=== PATIENT | female | born 1955 | race Caucasian/White ===

== ENCOUNTER → 2016-07-20 | Emergency (ER) | payer OTHER ==
[~2016-07-20] MED LIST: MECLIZINE HCL 25 MG TABLET (FP) ONE; MECLIZINE HCL 25 MG TABLET (FP) PO ONE
[2016-07-20 16:05] VITALS: BP 130/82; PULSE 88; TEMP 98.1; BMI 19.8
--- NOTE | 2016-07-20 18:19 | PDOC ---
[id number] Timing/Duration: other (this am) Associated Symptoms: denies: chest pain, fever/chills, headaches, nausea/ vomiting, shortness of breath, weakness <Fanta KanJemal - Last Filed: 07/27/16 20:32> <Gallo Boland - Last Filed: 07/30/16 09:59> - General Chief Complaint: Lightheaded Stated Complaint: LIGHTHEADED, NECK PAIN Time Seen by Provider: 07/20/16 17:57 Past History - Past Medical History Cardiac Disorders: Yes ("valve problem") Thyroid Disease: No Other medical history: herniated disc - Immunization History Immunization Up to Date: Yes - Psycho/Social/Smoking Cessation Hx Anxiety: No Suicidal Ideation: No Smoking History: Never smoked Have you smoked in the past 12 months: No Hx Alcohol Use: No Drug/Substance Use Hx: No Substance Use Type: None <EmiratiFantaIreneDaniela Last Filed: 07/27/16 20:32> <Gallo Boland - Last Filed: 07/30/16 09:59> - Past Medical History Allergies/Adverse Reactions: Allergies Allergy/AdvReac Type Severity Reaction Status Date / Time No Known Allergies Allergy Verified 07/20/16 16:00 Home Medications: Ambulatory Orders Meclizine HCl 25 mg PO BID PRN #14 tab.chew 07/20/16 Review of Systems - Review of Systems Constitutional: No: Chills, Fever HEENTM: No: Blurred Vision Respiratory: No: Shortness of Breath Cardiac (ROS): No: Chest Pain Neurological: Yes: Dizziness. No: Headache, Numbness, Tingling, Weakness <EmiratiFanta-Daniela Last Filed: 07/27/16 20:32> *Physical Exam - Vital Signs Last Vital Signs Temp Pulse Resp BP Pulse Ox 98.1 F 88 17 130/82 98 07/20/16 16:01 07/20/16 16:01 07/20/16 16:01 07/20/16 16:01 07/20/16 16:01 - Physical Exam General Appearance: Yes: Appropriately Dressed. No: Apparent Distress HEENT: positive: Normal Voice Neck: positive: Supple. negative: Tender, Decreased range of motion Respiratory/Chest: positive: Lungs Clear, Normal Breath Sounds. negative: Respiratory Distress Cardiovascular: positive: Regular Rate, S1, S2 Gastrointestinal/Abdominal: positive: Soft. negative: Tender Extremity: positive: Normal Inspection Integumentary: positive: Dry, Warm Neurologic: positive: Fully Oriented, Alert, Normal Mood/Affect, Motor Strength 5/5. negative: Facial Droop (no nystagmus, Prince intact, no drift, no ataxia) <EmiratiFantaArianna - Last Filed: 07/27/16 20:32> - Vital Signs Last Vital Signs Temp Pulse Resp BP Pulse Ox 98.1 F 88 17 130/82 98 07/20/16 16:01 07/20/16 16:01 07/20/16 16:01 07/20/16 16:01 07/20/16 16:01 <Gallo Boland - Last Filed: 07/30/16 09:59> ED Treatment Course - LABORATORY CBC & Chemistry Diagram: 07/20/16 18:25 07/20/16 18:25 - RADIOLOGY Radiology Studies Ordered: Category Date Time Status CHEST X-RAY PORTABLE* [RAD] Stat Radiology 07/20/16 17:57 Ordered <EmiratiDavid - Last Filed: 07/27/16 20:32> - LABORATORY CBC & Chemistry Diagram: 07/20/16 18:25 07/20/16 18:25 - ADDITIONAL ORDERS Additional order review: 07/20/16 18:25 RBC 4.84 MCV 89.7 MCHC 32.8 RDW 13.5 MPV 10.3 Neutrophils % 65.0 Lymphocytes % 27.2 Monocytes % 6.6 Eosinophils % 0.5 Basophils % 0.7 - Medications Given in the ED: ED Medications Discontinued Medications Generic Name Dose Route Start Last Admin Trade Name Angelq PRN Reason Stop Dose Admin Meclizine HCl 25 mg 07/20/16 18:38 07/20/16 19:37 Antivert - PO 07/20/16 18:39 Not Given ONCE ONE <Gallo Boland - Last Filed: 07/30/16 09:59> Medical Decision Making - Medical Decision Making 07/20/16 18:11 60-year-old female who reports history of possible valvular heart disease "on EKG" per patient, disc herniation to cspine, does not take any daily medications , here with dizziness. Patient reports waking up with sensation of the room spinning this a.m, brought on mostly upon standing. Has persisted throughout the day. No headache, visual changes, nausea, vomiting, focal weakness, chest pain or shortness of breath. No history of similar episode in the past. No recent URI symptoms and no tinnitus. Patient also complaining of persistent posterior neck pain status post injury 2 months ago per patient when she fell in her dining room injuring right side of neck. States she also had epistaxis at the time. Did not go to the ED. States pain has continued. No upper extremity sensory changes, or weakness. Called her PMD, Dr. Burrell, today who referred patient to the ED for workup of vertigo See exam Vertigo Non-focal w/ no cerebellar findings in ED No uri sxs No chest pain/sob -labs/ekg/CT head/?MRI -meclizine/reassess Persistent neck pain s/p fall 2 months ago Does have h/o disc herniation to cspine No upper ext sensory changes/weakness No sig ttp on exam, FROMI Given current compliant of vertigo, did ponder upon possible carotid dissection though unlikely given timing of injury -pain control as needed in ED -will discuss further w/u w/ ED attg 07/20/16 18:20 07/20/16 18:36 Labs and CTH/CTA neck pending as d/w ED attg 07/20/16 18:37 07/20/16 18:44 <David Kan - Last Filed: 07/27/16 20:32> - Medical Decision Making 07/30/16 09:58 The patient was seen and evaluated in conjunction with ALBIN Kan under my direct supervision, ancillary studies were reviewed. I independently interviewed and evaluated the patient and I agree with the plan as outlined by ALBIN Kan . <Gallo Boland - Last Filed: 07/30/16 09:59> *DC/Admit/Observation/Transfer <David Kan - Last Filed: 07/27/16 20:32> <Gallo Boland - Last Filed: 07/30/16 09:59> Diagnosis at time of Disposition: Vertigo - Discharge Dispostion Disposition: HOME - Prescriptions Prescriptions: Meclizine HCl 25 mg PO BID PRN #14 tab.chew PRN Reason: Vertigo - Referrals Referrals: García Rangel MD [Staff Physician] - Carlos A Burrell MD [Primary Care Provider] - - Patient Instructions Printed Discharge Instructions: DI for Vertigo Additional Instructions: Return to the emergency department immediately with ANY new, persistent or worsening symptoms including persistent dizziness, blurry vision or double vision, changes in your speech pattern, any numbness, tingling, weakness, severe neck pain or other concerns. Ibuprofen or Tylenol as needed for your neck discomfort, use a heating pad. If there is any change in nature of your pain or worsens please return for further evaluation. You MUST call and follow up with Dr. Burrell on Sunday or sunday for further evaluation of your symptoms. Results were discussed with you. Please make sure your doctor reviews the results of your emergency evaluation. Print Language: HONDURAN
[2016-07-20 18:56] LABS: BASOPHIL 0.7 % (0-2.0); EOSINOPHIL 0.5 % (0-4.5); MCH 29.4 pg (25.7-33.7); MCHC 32.8 g/dl (32.0-36.0); MEAN CELL VOLUME 89.7 fl (80-96); MEAN PLT VOLUME 10.3 fl (7.5-11.1); PLATELET COUNT 144 K/MM3 (134-434); RDW 13.5 % (11.6-15.6)
[2016-07-20 19:12] LABS: ANION GAP 12 (8-16); BILIRUBIN,TOTAL 0.5 mg/dL (0.2-1.0); CALCIUM 9.5 mg/dL (8.5-10.1); CO2 27 mmol/L (21-32); COCKROFT - GAULT 114.1635; CREATININE 0.5 mg/dL (0.55-1.02); GLUCOSE,RANDOM 92 mg/dL (74-106); SGOT/AST 22 U/L (15-37); SGPT/ALT 28 U/L (12-78)
[2016-07-20 19:16] LABS: ALK PHOS 84 U/L (45-117); TOT PROT 7.4 g/dl (6.4-8.2); TROPONIN I < 0.02 ng/ml (0.00-0.05)
[2016-07-20 19:32] LABS: URINE APPEARANCE CLEAR; URINE BILIRUBIN NEGATIVE (NEGATIVE); URINE BLOOD TRACE-LYSE (NEGATIVE); URINE COLOR LT. YELLOW; URINE GLUCOSE (UA) NEGATIVE (NEGATIVE); URINE KETONE NEGATIVE (NEGATIVE); URINE NITRITE NEGATIVE (NEGATIVE); URINE PROTEIN NEGATIVE (NEGATIVE); URINE UROBILINOGEN 0.2 E.U/dl E.U./dl (0.2-1.0)
[2016-07-20 19:42] LABS: URINE LEUK ESTERASE 1+ (NEGATIVE)
[2016-07-20 20:27] LABS: URINE RBC 0-2 /hpf (0-3); URINE WBC 0-4 /hpf (3-5)
--- NOTE | 2016-07-20 20:44 | PDOC ---
*Physical Exam - Vital Signs Last Vital Signs Temp Pulse Resp BP Pulse Ox 98.1 F 88 17 130/82 98 07/20/16 16:01 07/20/16 16:01 07/20/16 16:01 07/20/16 16:01 07/20/16 16:01 - Physical Exam Comments: 07/20/16 20:38 60y F no significant pmhx presents with complaint of neck pain and some dizziness today. The pt states she had a fall 2 months ago, and has been feeling posterior neck pain, that hasimproved significantly but still feels a mild neck pulling. It does improve with heat and ibuprofen. The pt states that today, when she woke up she felt some vertiginous sensations when getting up out of bed, lasting for seconds to about a minute before resolving. She was fine for several hours and the syptoms recurred when she was sitting up, and recurred again doing the same motion shortly after so pt came to [facility] for evaluation. pt dnies any n/v, dysarthria, palpitations, cp, sob, numbness/ tingling/weakness, vision changes. On exam the pt is well appearing, in no distres,s with an unreamarkable exam including no carotid bruits, normal finger to nose, rapidalternatingmovements, heel/neri, and normal nonataxic gait. The pt had no dizziness or vertigo when sitting/laying down, nor trning her head. Pt does have very mild tenderness in the posterior/trapezius on left side. Originally CT was ordered by ALBIN sanabria for CT brain and CTA to r/o dissection - pt was concerned about radiation exposure and clinically I do not suspect there is a cva or dissection (not impossible but highly improbably). I will dc the pt with meclizine forher dizziness, motrin/heat for her neck and fu with dr. Burrell and neurology. I discusse wit hthe patient if sypmtoms recur and especially if they are persistent to return ot the ED for further evaluation. Heart Score/ECG Review - ECG Impressions Comment:: 07/20/16 20:44 Twelve-lead EKG was performed and reviewed by me. There is normal sinus rhythm with a normal rate. Rate of 82 Incomplete right bundle-branch block ED Treatment Course - LABORATORY CBC & Chemistry Diagram: 07/20/16 18:25 07/20/16 18:25 - ADDITIONAL ORDERS Additional order review: Laboratory Results 07/20/16 07/20/16 19:00 18:25 Sodium 142 Potassium 4.1 Chloride 103 Carbon Dioxide 27 Anion Gap 12 BUN 19 H Creatinine 0.5 L Creat Clearance w eGFR > 60 Random Glucose 92 Calcium 9.5 Total Bilirubin 0.5 AST 22 ALT 28 Alkaline Phosphatase 84 Creatine Kinase 123 Troponin I < 0.02 Total Protein 7.4 Albumin 4.0 Urine Color Lt. yellow Urine Appearance Clear Urine pH 5.0 Ur Specific [place] 1.010 Urine Protein Negative Urine Glucose (UA) Negative Urine Ketones Negative Urine Blood Trace-lyse Urine Nitrite Negative Urine Bilirubin Negative Urine Urobilinogen 0.2 e.u/dl Ur Leukocyte Esterase 1+ H Urine RBC 0-2 Urine WBC 0-4 Ur Epithelial Cells Rare 07/20/16 18:25 RBC 4.84 MCV 89.7 MCHC 32.8 RDW 13.5 MPV 10.3 Neutrophils % 65.0 Lymphocytes % 27.2 Monocytes % 6.6 Eosinophils % 0.5 Basophils % 0.7 - Medications Given in the ED: ED Medications Discontinued Medications Generic Name Dose Route Start Last Admin Trade Name Freq PRN Reason Stop Dose Admin Meclizine HCl 25 mg 07/20/16 18:38 07/20/16 19:37 Antivert - PO 07/20/16 18:39 Not Given ONCE ONE *DC/Admit/Observation/Transfer Diagnosis at time of Disposition: Vertigo - Discharge Dispostion Disposition: HOME Condition at time of disposition: Improved Admit: No - Referrals Referrals: Carlos A Burrell MD [Primary Care Provider] - García Rangel MD [Staff Physician] - - Patient Instructions Printed Discharge Instructions: DI for Vertigo Additional Instructions: Return to the emergency department immediately with ANY new, persistent or worsening symptoms including persistent dizziness, blurry vision or double vision, changes in your speech pattern, any numbness, tingling, weakness, severe neck pain or other concerns. Ibuprofen or Tylenol as needed for your neck discomfort, use a heating pad. If there is any change in nature of your pain or worsens please return for further evaluation. You MUST call and follow up with Dr. Burrell on Sunday or sunday for further evaluation of your symptoms. Results were discussed with you. Please make sure your doctor reviews the results of your emergency evaluation. Print Language: IVORIAN
--- NOTE | 2016-07-21 11:24 | EKG ---
Test Reason : Blood Pressure : / mmHG Vent. Rate : 082 BPM Atrial Rate : 082 BPM P-R Int : 136 ms QRS Dur : 108 ms QT Int : 378 ms P-R-T Axes : 082 082 070 degrees QTc Int : 441 ms NORMAL SINUS RHYTHM BIATRIAL ENLARGEMENT PULMONARY DISEASE PATTERN INCOMPLETE RIGHT BUNDLE BRANCH BLOCK ABNORMAL ECG WHEN COMPARED WITH ECG OF 12-DEC-2005 08:54, NO SIGNIFICANT CHANGE WAS FOUND Confirmed by JORGE MCCANN MD ([id number]) on 07/21/2016 11:24:23 AM Referred By: Confirmed By:JORGE MCCANN MD
== END | disposition home or self-care (01) ==
LOC: JER 15:58
DX: R42 Dizziness and giddiness (principal); Z91.81 History of falling
CPT/HCPCS: 36415; 71010-TC; 80053; 81003; 81015; 82550; 84484; 85025; 93005; 93010; 99281-25

== ENCOUNTER 2024-01-09 04:40 | Emergency (ER) | payer OTHER, MEDICARE ==
[2024-01-09 04:52] VITALS: TEMP 97.7; BMI 19.8
[2024-01-09] MEDS ORDERED: ACETAMINOPHEN 325 MG TABLET (FP) ONE (05:27)
[2024-01-09] MEDS: ACETAMINOPHEN 325 MG TABLET (FP) PO ONE (05:55)
[2024-01-09 06:57] LABS: BASO % 0.9 % (0-2.0); EOS % 0.8 % (0-4.5); HEMATOCRIT 45.7 % (32.4-45.2); HEMOGLOBIN 14.8 GM/dL (10.7-15.3); LYMPH % 29.1 % (8-40); MCH 30.2 pg (25.7-33.7); MCHC 32.5 g/dl (32.0-36.0); MEAN CELL VOLUME 92.8 fl (80-96); MEAN PLT VOLUME 10.3 fl (7.5-11.1); MONO % 5.5 % (3.8-10.2); NEUT % 63.7 % (42.8-82.8); PLATELET COUNT 100 10^3/uL (134-434); RBC 4.92 M/mm3 (3.60-5.2); RDW 13.4 % (11.6-15.6); WHITE BLOOD COUNT 5.5 K/mm3 (4.0-10.0)
[2024-01-09 07:08] LABS: INR 0.93 (0.83-1.09); PROTHROMBIN TIME (PATIENT) 10.7 SEC (9.7-13.0)
[2024-01-09 07:11] LABS: ACTIVATED PTT 25.9 SECONDS (25.2-36.5)
[2024-01-09 07:15] LABS: POTASSIUM 3.7 mmol/L (3.5-5.1)
[2024-01-09 07:17] LABS: ALBUMIN 3.7 g/dl (3.4-5.0); CALCIUM 9.4 mg/dL (8.5-10.1)
[2024-01-09 07:18] LABS: BLOOD UREA NITROGEN 23.1 mg/dL (7-18)
[2024-01-09 07:21] LABS: CREATININE 0.6 mg/dL (0.55-1.3)
[2024-01-09 07:23] LABS: BILIRUBIN,TOTAL 0.6 mg/dL (0.2-1); TOT PROT 6.7 g/dl (6.4-8.2)
[2024-01-09 08:43] VITALS: BP 140/80; PULSE 81; RESP 17
== END 2024-01-09 08:43 | disposition home or self-care (01) ==
LOC: JER 04:40
DX: S09.90XA Unspecified injury of head, initial encounter (principal); R55 Syncope and collapse; M54.9 Dorsalgia, unspecified; R11.0 Nausea; W06.XXXA Fall from bed, initial encounter
CPT/HCPCS: 36415; 70450-TC; 71045-TC-FY; 72125-TC; 80053; 84484; 85025; 85610; 85730; 93005; 93010; 99285-25